=== PATIENT | female | born 1995 | race Caucasian/White ===

== ENCOUNTER → 2023-01-13 | Outpatient (CLI) | payer OTHER ==
--- NOTE | 2023-01-14 06:33 | US ---
EXAMINATION TYPE: Transabdominal DATE OF EXAM: 01/13/2023 4:33 PM COMPARISON: NONE CLINICAL INDICATION: Female, 27 years old with history of Z36.89 CONFIRM GESTATIONAL DATES AND VIABIL ITY; Confirm viability. G1. P0. Positive beta hCG test. EXAM PERFORMED: Transabdominal (TA) EXAM MEASUREMENTS: GESTATIONAL AGE / DATING Physician Established: Not yet established Dates by LMP: (10 weeks/4 days) EDC: 08/07/2023 Dates by First Scan: This is first scan Dates by Current Scan for: (11 weeks/0 days) EDC: 08/04/2023 MATERNAL ANATOMY Uterus: 10.5 x 8.4 x 7.2 cm Right Ovary: 2.8 x 1.8 x 1.7 cm Left Ovary: 3.2 x 1.8 x 2.3 cm Post CDS / Adnexa: Appear wnl Presence of free fluid: No Presence of corpus luteal cyst: Not seen Presence of subchorionic bleed: No GESTATION / SURVEY CRL: 4.12 cm (11 weeks/0 days) Yolk Sac (normal less than 6mm): 4.5 mm Heart Rate: 179 bpm Rhythm: Upper limits of normal IUP: Viable IUP Nuchal Translucency 10-14wks (normal less than 3mm): Not well visualized. Date of LMP: 10/31/2022 Single live intrauterine gestation as gestational sac, yolk sac, and pole are seen. No free flu id in pelvic cul-de-sac. Both ovaries are seen. No suspicious extraovarian adnexal masses noted. IMPRESSION: Single live intrauterine gestation is confirmed. Mean crown-rump length 4.1 cm correspond ing to 11 weeks 0 day old fetus.
== END | disposition home or self-care (01) ==
LOC: RADUSWWP 16:11
PROVIDERS: ATTEND Obstetrics & Gynecology
DX: O36.5910 Maternal care for other known or suspected poor fetal growth, first trimester, not applicable or unspecified (principal); Z3A.11 11 weeks gestation of pregnancy
CPT/HCPCS: 76801

== ENCOUNTER 2023-08-07 17:48 | Inpatient (IN) | payer OTHER ==
[2023-08-07] MEDS ORDERED: TRANEXAMIC 1,000 MG/100ML-NACL 1,000 MG in EMPTY BAG 1 BAG IV PRN (18:10)
[2023-08-07] MEDS ORDERED: miSOPROStoL 200 MCG TAB PO PRN (18:10)
[2023-08-07] MEDS ORDERED: TERBUTALINE 1 MG/ML VIAL SQ PRN (18:10)
[2023-08-07] MEDS ORDERED: LIDOCAINE 0.5% (PF) 5 MG/ML (50 ML SDV) SQ PRN (18:10)
[2023-08-07] MEDS ORDERED: CARBOPROST TROMETHAMINE 250 MCG/ML 1 ML AMP IM PRN (18:10)
[2023-08-07] MEDS ORDERED: METHYLERGONOVINE 0.2 MG/ML 1 ML AMP IM PRN (18:10)
[2023-08-07] MEDS ORDERED: OXYTOCIN 10 UNIT/ML 1 ML VIAL IM PRN (18:10)
[2023-08-07] MEDS ORDERED: OXYTOCIN 30 UNITS/500 ML NS 30 UNIT in SALINE 1 500ML.BAG IV SCH (18:15)
[2023-08-07 18:40] LABS: Basophils % (A) 0 %; Eosinophils % (A) 0 %; HCT 32.8 % (34.0-46.0); HGB 11.3 gm/dL (11.4-16.0); Lymphocytes # (A) 1.6 k/uL (1.0-4.8); Lymphocytes % (A) 12 %; MCH 30.4 pg (25.0-35.0); MCHC 34.4 g/dL (31.0-37.0); MCV 88.3 fL (80.0-100.0); Mean Platelet Volume 11.4; Monocytes # (A) 0.5 k/uL (0-1.0); Monocytes % (A) 3 %; Neutrophils # (A) 11.5 k/uL (1.3-7.7); Neutrophils % (A) 84 %; Platelet Count 289 k/uL (150-450); RBC 3.72 m/uL (3.80-5.40); RDW 12.9 % (11.5-15.5); WBC 13.8 k/uL (3.8-10.6)
[2023-08-07] MEDS: LACTATED RINGERS 1,000 ML IV SCH (18:41)
[2023-08-07] MEDS ORDERED: fentaNYL (PF) 50 MCG/ML 5 ML AMP ONE (19:05)
[2023-08-07] MEDS ORDERED: SODIUM CHLORIDE 0.9% 250 ML BAG ONE (19:05)
[2023-08-07] MEDS ORDERED: ROPIVACAINE 5 MG/ML 30 ML VIAL ONE (19:05)
--- NOTE | 2023-08-08 00:27 | P.HPOB ---
History of Present Illness H&P Date: 08/08/23 Chief Complaint: labor 8-year-old presents at 40 weeks gestation complaining of contractions. Her cervix was 5 cm dilated, 90% effaced, -1 station. She was vinicio every 2-3 minutes. heart tones 135 with moderate variability and reactive. Review of Systems All systems: negative Constitutional: Denies chills, Denies fever Eyes: denies blurred vision, denies pain Ears, nose, mouth and throat: Denies headache, Denies sore throat Cardiovascular: Denies chest pain, Denies shortness of breath Respiratory: Denies cough Gastrointestinal: Denies abdominal pain, Denies diarrhea, Denies nausea, Denies vomiting Genitourinary: Denies dysuria, Denies hematuria Musculoskeletal: Denies myalgias Integumentary: Denies pruritus, Denies rash Neurological: Denies numbness, Denies weakness Psychiatric: Denies anxiety, Denies depression Endocrine: Denies fatigue, Denies weight change Past Medical History Past Medical History: No Reported History Additional Past Medical History / Comment(s): PNC WITH DR. CANALES. POSITIVE, ANTIBODIES NEGATIVE, RUBELLA IMMUNE, HEPATITIS B- GBS NEGATIVE HIV NONREACTIVE RPR NONREACTIVE History of Any Multi-Drug Resistant Organisms: None Reported Additional Past Surgical History / Comment(s): Eye surgery in 2003. Past Anesthesia/Blood Transfusion Reactions: No Reported Reaction Past Psychological History: No Psychological Hx Reported Smoking Status: Never smoker Past Drug Use History: None Reported - Past Family History Mother Family Medical History: No Reported History Medications and Allergies Allergies Allergy/AdvReac Type Severity Reaction Status Date / Time Penicillins AdvReac Rash/Hives Verified 08/07/23 18:04 Exam Osteopathic Statement: *. No significant issues noted on an osteopathic structural exam other than those noted in the History and Physical/Consult. Vital Signs Temp Pulse Resp BP Pulse Ox 08/07/23 18:13 97 F L 86 16 122/78 100 08/07/23 18:03 97 F L 86 16 122/78 100 Intake and Output 08/07/23 08/07/23 08/08/23 14:59 22:59 06:59 Other: Weight 71.668 kg Heart: Regular rate and rhythm Lungs: Clear to auscultation bilaterally Abdomen: Soft, nontender Extremities: Negative Homans sign Results Result Diagrams: 08/07/23 18:26 Abnormal Lab Results - Last 24 Hours (Table) 08/07/23 Range/Units 18:26 WBC 13.8 H (3.8-10.6) k/uL RBC 3.72 L (3.80-5.40) m/uL Hgb 11.3 L (11.4-16.0) gm/dL Hct 32.8 L (34.0-46.0) % Neutrophils # 11.5 H (1.3-7.7) k/uL Assessment and Plan (1) Active labor Current Visit: Yes Status: Acute Code(s): NZM0044 - SNOMED Code(s): 991405129 (2) 40 weeks gestation of Current Visit: Yes Status: Acute Code(s): Z3A.40 - 40 WEEKS GESTATION OF SNOMED Code(s): 36249026 Plan: 1. Admit to family place 2. Expectant management 3. Anticipate normal vaginal delivery
[2023-08-08] MEDS ORDERED: SIMETHICONE 80 MG CHEWABLE PO PRN (00:29)
[2023-08-08] MEDS ORDERED: diphenhydrAMINE 50 MG CAP PO PRN (00:29)
[2023-08-08] MEDS ORDERED: ACETAMINOPHEN TAB 325 MG TAB PO PRN (00:29)
[2023-08-08] MEDS ORDERED: diphenhydrAMINE 50 MG/ML 1 ML VIAL IVP PRN ×2 (00:29)
[2023-08-08] MEDS ORDERED: diphenhydrAMINE 25 MG CAP PO PRN (00:29)
[2023-08-08] MEDS ORDERED: ZOLPIDEM 5 MG TAB PO PRN (00:29)
[2023-08-08] MEDS ORDERED: HYDROCORTISONE 2.5% RECTAL CREAM 30 GM TUBE RECTAL PRN (00:29)
[2023-08-08] MEDS ORDERED: BENZOCAINE/MENTHOL SPRAY 1 GM/SPRAY AEROSOL TOPICAL PRN (00:29)
[2023-08-08] MEDS ORDERED: LANOLIN CREAM 5 GM TUBE TOPICAL PRN (00:29)
--- NOTE | 2023-08-08 00:29 | P.PROBDLV ---
Vaginal Delivery Note - . Vaginal Delivery Note: 28-year-old presents at 40 weeks gestation complaining of contractions. Her cervix was 5 cm dilated, 90% effaced, -1 station. She was vinicio every 2-3 minutes. heart tones 135 with moderate variability and reactive. Patient's bag of water spontaneously ruptured at 1845 and thin meconium fluid was seen. When she was uncomfortable she did get an epidural. Her cervix was completely dilated around 10:30 PM. She pushed, and delivered a viable over intact perineum under epidural anesthesia at 0010. Apgars 9, 9, weight pending. Placenta delivered spontaneously, intact with three-vessel cord soon thereafter. Vagina, cervix, perineum inspected. Second degree midline laceration was repaired with 3-0 Vicryl. Estimated blood loss 100 mL. Mother and baby in stable condition.
[2023-08-08] MEDS ORDERED: OXYTOCIN 30 UNITS/500 ML NS 30 UNIT in SALINE 1 500ML.BAG IV SCH (00:30)
[2023-08-08] MEDS: LACTATED RINGERS 1,000 ML IV SCH ×2 (04:24→19:53)
[2023-08-08] MEDS: IBUPROFEN 600 MG TAB PO PRN ×3 (05:43→20:25)
[2023-08-08] MEDS: SENNOSIDES-DOCUSATE SODIUM 1 EACH TAB PO SCH ×2 (07:42→20:25)
--- NOTE | 2023-08-09 06:29 | P.PNOBGVD ---
Subjective - Subjective Patient reports: Reports appetite normal, Reports voiding normally, Reports pain well controlled, Reports ambulating normally : doing well Objective - Latest Vital Signs Latest vital signs: Vital Signs Temp Pulse Resp BP Pulse Ox 08/08/23 23:49 98.3 F 82 16 117/71 98 08/08/23 15:52 98.2 F 72 16 99/63 96 08/08/23 12:00 98.2 F 76 16 119/76 08/08/23 08:00 97.5 F L 74 16 112/75 Intake and Output 08/08/23 08/08/23 08/09/23 14:59 22:59 06:59 Intake Total 300 400 Balance 300 400 Intake: Oral 300 400 Other: # Voids 2 2 - Exam Lungs: bilateral: normal Chest: Normal S1, Normal S2 Extremities: Present: normal Abdomen: Present: normal appearance, soft Uterus: Present: normal, firm Assessment and Plan Assessment: day #1. Patient is resting without complaints and wishes to go home. Vital signs are stable she's afebrile. Uterus is firm nontender she's having normal lochia. My impression this is a normal course. Plan is to continue routine care, check a CBC, discharge home later today. (1) Normal vaginal delivery Current Visit: Yes Status: Acute Code(s): O80 - ENCOUNTER FOR FULL-TERM UNCOMPLICATED DELIVERY SNOMED Code(s): 90376990
--- NOTE | 2023-08-09 06:34 | P.DS ---
Providers Date of admission: 08/07/23 18:12 Expected date of discharge: 08/09/23 Attending physician: Carson Catherine Primary care physician: Stated None - Discharge Diagnosis(es) (1) Normal vaginal delivery Current Visit: Yes Status: Acute Hospital Course: Please see dictated H&P and delivery note per Dr. Hernandez on this patient's admission. In brief summary this is a pleasant 28-year-old 1 para 0 female 40 and one sevenths weeks who is admitted to labor and delivery in active labor. Patient quickly goes on to have a vaginal delivery viable male . Please see dictated delivery note. day #1 patient's felt to be stable for discharge home follow up with me in 6 weeks. Procedures: Normal spontaneous vaginal delivery Patient Condition at Discharge: Good Plan - Discharge Summary New Discharge Prescriptions: New Ibuprofen [Motrin] 600 mg PO Q6HR PRN #30 tab PRN Reason: Mild Pain (Scale 1 To 3) Discharge Medication List Ibuprofen [Motrin] 600 mg PO Q6HR PRN #30 tab 08/09/23 [Rx] Follow up Appointment(s)/Referral(s): Carson Catherine MD [STAFF PHYSICIAN] - 6 Weeks (Please see me in 6 weeks for a visit) Patient Instructions/Handouts: Vaginal Delivery (DC) Activity/Diet/Wound Care/Special Instructions: No intercourse or anything per vagina for 6 weeks. Please call if any fever, chills, excessive vaginal bleeding, and/or abdominal pain. Discharge Disposition: HOME SELF-CARE
[2023-08-09 07:45] LABS: Basophils % (A) 0 %; Eosinophils % (A) 0 %; HCT 27.1 % (34.0-46.0); Lymphocytes # (A) 1.3 k/uL (1.0-4.8); Lymphocytes % (A) 11 %; MCH 30.6 pg (25.0-35.0); MCHC 33.7 g/dL (31.0-37.0); MCV 90.8 fL (80.0-100.0); Monocytes # (A) 0.5 k/uL (0-1.0); Monocytes % (A) 4 %; Neutrophils # (A) 9.6 k/uL (1.3-7.7); Neutrophils % (A) 83 %; Platelet Count 226 k/uL (150-450); RBC 2.99 m/uL (3.80-5.40); WBC 11.5 k/uL (3.8-10.6)
[2023-08-09 07:47] LABS: HGB 9.1 gm/dL (11.4-16.0)
[2023-08-09] MEDS: SENNOSIDES-DOCUSATE SODIUM 1 EACH TAB PO SCH (08:37)
[2023-08-09] MEDS: IBUPROFEN 600 MG TAB PO PRN (08:37)
[2023-08-09 09:11] VITALS: BP 105/70; PULSE 79; RESP 15; TEMP 98.7
== END 2023-08-09 12:20 | disposition home or self-care (01) | DRG 560 ==
LOC: FBPOP 17:48 → 4FBP 18:12
PROVIDERS: ADMIT Obstetrics & Gynecology; ATTEND Obstetrics & Gynecology
PROC: 10E0XZZ Delivery of Products of Conception, External Approach (ICD-10-PCS; principal; 2023-08-08)
PROC: 0KQM0ZZ Repair Perineum Muscle, Open Approach (ICD-10-PCS; 2023-08-08)
DX: O42.92 Full-term premature rupture of membranes, unspecified as to length of time between rupture and onset of labor (principal); O70.1 Second degree perineal laceration during delivery; Z37.0 Single live birth; O77.0 Labor and delivery complicated by meconium in amniotic fluid; Z3A.40 40 weeks gestation of pregnancy; Z88.0 Allergy status to penicillin
CPT/HCPCS: 59025; 85025; 86850; 86900; 86901; 99213